=== PATIENT | male | born 1975 | race Caucasian/White ===

== ENCOUNTER 2017-09-03 23:55 | Emergency (ER) | payer BC ==
[2017-09-04] MEDS ORDERED: Ibuprofen 600 MG Tab PO ONE (00:13)
[2017-09-04] MEDS ORDERED: Sulfamethoxazole/Trimethoprim 800-160 MG Tab PO ONE (00:13)
--- NOTE | 2017-09-04 00:27 | EDM.PDOC ---
ED HPI GENERAL MEDICAL PROBLEM - General Chief Complaint: Abdominal Pain Stated Complaint: GENERAL Time Seen by Provider: 09/04/17 00:08 Source of Information: Reports: Patient History Limitations: Reports: No Limitations - History of Present Illness INITIAL COMMENTS - FREE TEXT/NARRATIVE: 42 y.o.w.m came to the ed due to left scrotal pain for a few days. No mass, pain improves when he lifts his scrotum. Denies trauma. No N/V/D or any other acute medial issues. BP 154/85 Pulse 87 RR 18 Temp 36.8 Pulse ox 98% on RA Onset Date: 08/31/17 Onset Time: 08:00 Duration: Getting Worse Location: Reports: Pelvis (left scrotum) Quality: Reports: Ache, Burning Severity: Moderate Improves with: Reports: Rest, Other (elevation of scrotum) Worsens with: Reports: Movement Pelvic Pain Score (Numeric/FACES): 9 - Related Data Allergies Allergy/AdvReac Type Severity Reaction Status Date / Time No Known Allergies Allergy Verified 09/04/17 00:07 Home Meds: Home Meds Sulfamethoxazole/Trimethoprim [Bactrim Ds Tablet] 1 each PO BID #20 tablet 09/04 [Rx] ED ROS GENERAL - Review of Systems Review Of Systems: See Below Constitutional: Reports: No Symptoms HEENT: Reports: No Symptoms Respiratory: Reports: No Symptoms Cardiovascular: Reports: No Symptoms Endocrine: Reports: No Symptoms GI/Abdominal: Reports: No Symptoms : Reports: Pain Musculoskeletal: Reports: No Symptoms Skin: Reports: No Symptoms Neurological: Reports: No Symptoms Psychiatric: Reports: No Symptoms Hematologic/Lymphatic: Reports: No Symptoms Immunologic: Reports: No Symptoms ED EXAM, RENAL/ - Physical Exam Exam: See Below Exam Limited By: No Limitations General Appearance: Alert, WD/WN, Mild Distress Eye Exam: Bilateral Eye: Normal Inspection Ears: Normal External Exam Nose: Normal Inspection Throat/Mouth: Normal Inspection Head: Atraumatic, Normocephalic Neck: Normal Inspection, Supple, Non-Tender, Full Range of Motion Respiratory/Chest: No Respiratory Distress, Lungs Clear, Normal Breath Sounds Cardiovascular: Normal Peripheral Pulses, Regular Rate, Rhythm, No Edema, No Gallop GI/Abdominal: Normal Bowel Sounds, Soft, Non-Tender, No Organomegaly, No Abnormal Bruit, No Mass (Male) Exam: Scrotum Tenderness (L) Rectal (Males) Exam: Deferred Back Exam: Normal Inspection, Full Range of Motion Extremities: Normal Inspection, Normal Range of Motion, Non-Tender, Normal Capillary Refill Neurological: Alert, Oriented, CN II-XII Intact, Normal Cognition, Normal Gait Psychiatric: Normal Affect, Normal Mood Skin Exam: Warm, Dry, Intact Lymphatic: No Adenopathy Course - Vital Signs Text/Narrative:: 42 y.o.w.m came to the ed due to left scrotal pain for a few days. No mass, pain improves when he lifts his scrotum. Denies trauma. No N/V/D or any other acute medial issues. BP 154/85 Pulse 87 RR 18 Temp 36.8 Pulse ox 98% on RA PE: WNWD W M with left scrotal pain for 3-4 days, tender scrotal gland Labs: UA neg for UTI Impression: Epididimitis Tx: Motrin, Bactrim, ICE Reexam: Improved Plan: D/C with instructions Last Recorded V/S: Last Vital Signs Temp 36.9 C 09/04/17 00:08 Pulse 68 09/04/17 00:08 Resp 18 09/04/17 00:08 BP 152/84 H 09/04/17 00:08 Pulse Ox 99 09/04/17 00:08 - Orders/Labs/Meds Orders: Active Orders 24 hr Category Date Time Status Scrotum and Contents [US] Stat Exams 09/04/17 00:50 Ordered UA W/MICROSCOPIC [URIN] Stat Lab 09/04/17 00:19 Ordered Ice Therapy [OM.PC] Routine Oth 09/04/17 00:13 Ordered Labs: Laboratory Tests 09/04/17 Range/Units 00:19 Urine Color Yellow (YELLOW) Urine Appearance Clear (CLEAR) Urine pH 5.0 (5.0-6.5) Ur Specific [place] 1.020 (1.010-1.025) Urine Protein Negative (NEGATIVE) mg/dL Urine Glucose (UA) Normal (NEGATIVE) mg/dL Urine Ketones Negative (NEGATIVE) mg/dL Urine Occult Blood Negative (NEGATIVE) Urine Nitrite Negative (NEGATIVE) Urine Bilirubin Negative (NEGATIVE) Urine Urobilinogen Normal (NEGATIVE) mg/dL Ur Leukocyte Esterase Negative (NEGATIVE) Urine RBC 0-5 (0) Urine WBC 0-5 (0) Ur Squamous Epith Cells Rare (NS,R,O) Urine Bacteria Few H (NS) Meds: Medications Discontinued Medications Generic Name Dose Route Start Last Admin Trade Name Christin PRN Reason Stop Dose Admin Ibuprofen 600 mg 09/04/17 00:13 09/04/17 00:40 Motrin PO 09/04/17 00:14 600 mg ONETIME ONE Administration Trimethoprim/Sulfamethoxazole 1 tab 09/04/17 00:13 09/04/17 00:42 Septra Ds PO 09/04/17 00:14 1 tab ONETIME ONE Administration Departure - Departure Time of Disposition: 00:35 Disposition: Home, Self-Care 01 Condition: Good Clinical Impression: Epididymitis - Discharge Information Prescriptions: Sulfamethoxazole/Trimethoprim [Bactrim Ds Tablet] 1 each PO BID #20 tablet Referrals: PCP,None [Primary Care Provider] - Forms: ED Department Discharge Additional Instructions: Please apply ICE to scrotum, take Motrin for pain, please take bactrim DS as recommended, U/S for scrotum at 11 am on 09/04/2017. Please f/u, come back if your symptoms get worse acutely. - My Orders Last 24 Hours: My Active Orders 09/04/17 00:13 Ice Therapy [OM.PC] Routine 09/04/17 00:19 UA W/MICROSCOPIC [URIN] Stat 09/04/17 00:50 Scrotum and Contents [US] Stat - Assessment/Plan Last 24 Hours: My Active Orders 09/04/17 00:13 Ice Therapy [OM.PC] Routine 09/04/17 00:19 UA W/MICROSCOPIC [URIN] Stat 09/04/17 00:50 Scrotum and Contents [US] Stat
== END 2017-09-04 00:50 | disposition home or self-care (01) ==
LOC: FB.ED 23:55
DX: N45.1 Epididymitis (principal)
CPT/HCPCS: 76870; 81001; 99284; A9270